=== PATIENT | male | born 1975 | race African-American/Black ===

== ENCOUNTER 2016-09-03 16:38 | Inpatient (IN) | payer OTHER ==
[~2016-09-03] VITALS: Ht 190.5 cm; Wt 109.2 kg
[2016-09-03 18:12] LABS: HEMATOCRIT 46.6 % (38.0-50.0); MCH 33.5 PG (29.0-34.0); MCHC 34.5 G/DL (30.0-36.0); MCV 97.1 FL (86-99); MEAN PLAT.VOLUME 9.3 uM^3 (9.0-12.4); PLATELET COUNT 233 K/uL (156-360); RBC DIS.WIDTH-CV 12.6 % (11.8-14.6); RBC DIS.WIDTH-SD 45.7 % (39-53); WHITE BLOOD COUNT 10.4 K/uL (4.1-10.2)
[2016-09-03 18:23] LABS: CHLORIDE 100 mEq/L (99-109); POTASSIUM 3.9 mEq/L (3.7-5.4); SODIUM 138 mEq/L (136-147)
[2016-09-03 18:24] LABS: GLUCOSE 106 mg/dL (70-99)
[2016-09-03 18:26] LABS: ANION GAP 11 MEQ/L (2-14); INTER. NORMALIZED RATIO 1.2; PROTHROMBIN TIME 12.2 (9.2-11.2); PTT 32.2 (25-32)
[2016-09-03 18:28] LABS: GFR ESTIMATE (CALCULATED) > 59 mL/min/
[2016-09-03 18:29] LABS: UREA NITROGEN (BUN) 21 mg/dL (9-23)
[2016-09-03] MEDS ORDERED: TYLENOL REGULA325 MG PO (20:39)
[2016-09-03] MEDS ORDERED: TRIFLUOPERAZINE5 MG PO (20:40)
[2016-09-03] MEDS ORDERED: PROZAC20 MG PO (20:40)
[2016-09-03] MEDS ORDERED: IBUPROFEN600 MG PO (20:40)
[2016-09-03] MEDS ORDERED: BENZTROPINE MESY1 MG PO (20:40)
[2016-09-03] MEDS ORDERED: GLUCOSAMINE CH1 EAC6 PO (20:41)
[2016-09-03 23:00] VITALS: BP 140/71
[2016-09-04] VITALS (12 sets, daily range): BP systolic 110–156; BP diastolic 30–78
[2016-09-04 00:16] LABS: METH RESISTANT S AUREUS PCR NEGATIVE (NEGATIVE)
[2016-09-04 00:18] LABS: PROBE CHECK PASS; SPECIMEN PROCESSING CONTROL PASS
[2016-09-04 06:12] LABS: ANION GAP 9 MEQ/L (2-14); CHLORIDE 104 MEQ/L (99-109); GFR ESTIMATE (CALCULATED) > 59 mL/min/; GLUCOSE 131 mg/dL (70-99); POTASSIUM 4.5 MEQ/L (3.7-5.4); SAMPLE HEMOLYSIS CHECK 0; SAMPLE ICTERIC CHECK 0; SAMPLE LIPEMIA CHECK 0; SODIUM 139 MEQ/L (136-147); UREA NITROGEN (BUN) 20 mg/dL (9-23)
[2016-09-04 06:18] LABS: HEMATOCRIT 42.4 % (38.0-50.0); MCH 33.3 PG (29.0-34.0); MCV 98.1 FL (86-99); MEAN PLAT.VOLUME 8.9 uM^3 (9.0-12.4); PLATELET COUNT 205 K/uL (156-360); RBC DIS.WIDTH-CV 12.5 % (11.8-14.6); RBC DIS.WIDTH-SD 45.6 % (39-53); RED BLOOD COUNT 4.32 M/uL (4.00-5.50)
[2016-09-04 06:27] LABS: WHITE BLOOD COUNT 6.2 K/uL (4.1-10.2)
[2016-09-05] VITALS: BP 110/54
[2016-09-05 04:00] VITALS: BP 116/57
[2016-09-05 08:00] VITALS: BP 124/65
[2016-09-05 12:00] VITALS: BP 111/66
[2016-09-05] MEDS ORDERED: AUGMENTIN80 MG/ML PO ×2 (13:18→13:46)
== END 2016-09-05 15:05 | DRG 914 ==
LOC: EME 16:38 → 4WEST 20:22 → EDOF 20:22 → 4WEST 22:51
PROVIDERS: Emergency Medicine; Obstetrics & Gynecology
PROC: 0CJS8ZZ Inspection of Larynx, Via Natural or Artificial Opening Endoscopic (ICD-10-PCS; principal; 2016-09-03)
DX: S19.85XA Other specified injuries of pharynx and cervical esophagus, initial encounter (principal); X58.XXXA Exposure to other specified factors, initial encounter; J98.8 Other specified respiratory disorders; R13.10 Dysphagia, unspecified; R07.0 Pain in throat; R60.9 Edema, unspecified; F31.9 Bipolar disorder, unspecified; R50.9 Fever, unspecified; Y99.9 Unspecified external cause status; Y92.149 Unspecified place in prison as the place of occurrence of the external cause; Y93.89 Activity, other specified
CPT/HCPCS: 70491; 71260; 80048; 83605; 85027; 85610; 85730; 87040; 87641; 94799; 99281; 99285; J1100; J1200; J2270; J2405; J2543; J7030; J7120; S0028